=== PATIENT | male | born 1980 | race Hispanic/Latino ===

== ENCOUNTER 2020-04-12 23:11 | Emergency (ER) | payer SELFPAY ==
--- OUTSIDE RECORDS SUMMARY | 2020-04-12 23:13 | XMS REPORT | Summary of Care ---
:1980 Author Organization [facility] - [facility] Address [address] [place] [address] Care Team Providers Name Role Phone Cecy Gonsalves MD Primary Care Provider Encounter Details Date Type Department Care Team Description 02/28/2020 Patient Secure [facility] Cardiology- Wild Grijalva Angleton MD [facility], [address] [place] [address] [place], [place] [phone] Allergies No Known Allergiesdocumented as of this encounter (statuses as of 03/02/2020) Medications Medication Sig Dispensed Refills Start Date End Date Status albuterol 90 Inhale 2 Puffs 8.5 g 0 10/08/2019 A ctive mcg/actuation every 4 (four) inhalerIndications: hours as needed for COVID-19 virus Wheezing or infection Shortness of Breath. losartan 50 mg tablet Take 1 tablet by 45 tablet 6 01/10/2020 Active mouth 2 (two) times daily. Please take one 50 mg tablet in the morning and one-half (25mg) tablet in the evening. amLODIPine 5 mg Take 1 tablet by 90 tablet 3 01/14/2020 Active tablet mouth daily. documented as of this encounter (statuses as of 03/02/2020) Active Problems Problem Noted Date Essential hypertension 09/08/2019 Palpitations 09/07/2019 Morbid obesity with body mass index of 40.0-49.9 09/06 documented as of this encounter (statuses as of 03/02/2020) Social History Tobacco Use Types Packs/Day Years Used Date Former Smoker 1 5 Smokeless Tobacco: Former User Alcohol Use Drinks/Week oz/Week Comments Yes 6- 8 bottles wh en he goes out only Sex Assigned at Date Recorded Not on file documented as of this encounter Last Filed Vital Signs Not on filedocumented in this encounter Miscellaneous Notes Telephone Encounter - Marisel Grijalva MD - 03/02/2020 9:14 AM CSTMychart message sent. ESS DESIGNER documented in this encounter Plan of Treatment Date Type Specialty Care Team Description 04/14/2020 Office Visit Cardiology Marisel Grijalva MD [address] [place] [phone] Health Maintenance Due Date Last Done Comments DTaP,Tdap,and Td Vaccines (1 - 1998 Tdap) INFLUENZA VACCINE (#1) 2019 Depression Screening 12/11/2020 12/12/2019 PNEUMOCOCCAL 0-64 YEARS COMBINED Aged Out No longer eligible based on SERIES patient's age to complete this topic documented as of this encounter Results Not on filedocumented in this encounter
--- OUTSIDE RECORDS SUMMARY | 2020-04-12 23:13 | XMS REPORT | Summary of Care ---
:1980 Author Organization [facility] Address [address] [place] [address] Care Team Providers Name Role Phone Cecy Gonsalves MD Primary Care Provider Encounter Details Date Type Department Care Team Description 03/25/2020 Patient Secure [facility] Doctor Unassigned, [address] [place] [address] [place] [phone] [place] [address] [place] [address] Allergies No Known Allergiesdocumented as of this encounter (statuses as of 03/26/2020) Medications Medication Sig Dispensed Refills Start Date End Date Status albuterol 90 Inhale 2 Puffs 8.5 g 0 10/08/2019 A ctive mcg/actuation every 4 (four) inhalerIndication hours as needed s: COVID-19 virus for Wheezing or infection Shortness of Breath. amLODIPine 5 mg Take 1 tablet by 90 tablet 3 01/14/2020 Active tablet mouth daily. losartan 50 mg Take 1 tablet by 30 tablet 5 03/26/2020 Active tablet mouth every morning. losartan 25 mg Take 1 tablet by 30 tablet 5 03/26/2020 Active tablet mouth every evening. losartan 50 mg Take 1 tablet by 45 tablet 6 01/10/2020 020 Discontinued tablet mouth 2 (two) times daily. Please take one 50 mg tablet in the morning and one-half (25mg) tablet in the evening. documented as of this encounter (statuses as of 03/26/2020) Active Problems Problem Noted Date Essential hypertension 09/08/2019 Palpitations 09/07/2019 Morbid obesity with body mass index of 40.0-49.9 09/06 documented as of this encounter (statuses as of 03/26/2020) Social History Tobacco Use Types Packs/Day Years Used Date Former Smoker 1 5 Smokeless Tobacco: Former User Alcohol Use Drinks/Week oz/Week Comments Yes 6- 8 bottles wh en he goes out only Sex Assigned at Date Recorded Not on file documented as of this encounter Last Filed Vital Signs Not on filedocumented in this encounter Plan of Treatment Date Type Specialty Care Team Description 04/14/2020 Office Visit Cardiology Marisel Grijalva MD [address] [place] [phone] Health Maintenance Due Date Last Done Comments DTaP,Tdap,and Td Vaccines (1 - 1998 Tdap) INFLUENZA VACCINE (#1) 2019 Depression Screening 12/11/2020 12/12/2019 PNEUMOCOCCAL 0-64 YEARS COMBINED Aged Out No longer eligible based on SERIES patient's age to complete this topic documented as of this encounter Results Not on filedocumented in this encounter
--- OUTSIDE RECORDS SUMMARY | 2020-04-12 23:13 | XMS REPORT | Summary of Care ---
:1980 Author Organization [facility] - [facility] Address [address] [place] [address] Care Team Providers Name Role Phone Cecy Gonsalves MD Primary Care Provider Encounter Details Date Type Department Care Team Description 03/26/2020 Patient Secure [facility] Cardiology- Wild Grijalva Angleton [facility], [address] [place] [address] [place], [place] [phone] Allergies No Known Allergiesdocumented as of this encounter (statuses as of 03/26/2020) Medications Medication Sig Dispensed Refills Start Date End Date Status albuterol 90 Inhale 2 Puffs 8.5 g 0 10/08/2019 A ctive mcg/actuation every 4 (four) inhalerIndications: hours as needed for COVID-19 virus Wheezing or infection Shortness of Breath. amLODIPine 5 mg Take 1 tablet by 90 tablet 3 01/14/2020 Active tablet mouth daily. losartan 50 mg tablet Take 1 tablet by 30 tablet 5 03/26/2020 Active mouth every morning. losartan 25 mg tablet Take 1 tablet by 30 tablet 5 03/26/2020 Active mouth every evening. documented as of this encounter (statuses [...] Cardiology Marisel Grijalva MD [address] [place] [place] [address] [phone] Health Maintenance Due Date Last Done Comments DTaP,Tdap,and Td Vaccines (1 - 1998 Tdap) INFLUENZA VACCINE (#1) 2019 Depression Screening 12/11/2020 12/12/2019 PNEUMOCOCCAL 0-64 YEARS COMBINED Aged Out No longer eligible based on SERIES patient's age to complete this topic documented as of this encounter Results Not on filedocumented in this encounter
--- OUTSIDE RECORDS SUMMARY | 2020-04-12 23:13 | XMS REPORT | Continuity of Care Document ---
:1980 Author Organization [facility] Address [address] [place] [address] Care Team Providers Name Role Phone Rudi JOHNS, K.H. Attending Clinician Doctor Unassigned, Name Attending Clinician Unavailable Problems This patient has no known problems. Allergies, Adverse Reactions, Alerts This patient has no known allergies or adverse reactions. Medications This patient has no known medications. Procedures This patient has no known procedures. Encounters Start End Encounter Admission Attending Care Care Encounter Source Date/Time Date/Time Type Type Clinicians Facility Department ID 2020-03-26 2020-03-26 Patient [facility] [id number] 00:00:00 00:00:00 Secure Msg Marisel Urena [id number] [place] [id number] [facility] [phone] [address] 2020-03-25 2020-03-25 Patient Doctor SHENA [id number] 00:00:00 00:00:00 Secure Msg UnassignedLOPEZ [id number] [place] [facility] [id number] [id number] 2020-02-28 2020-02-28 Patient Rudi [facility] [id number] 00:00:00 00:00:00 Secure Msg Marisel Urena [id number] [place] [id number] [facility] [phone] nal 059 [facility] 2020-01-13 2020-01-13 Telephone [facility] [id number] 00:00:00 00:00:00 Marisel Urena [id number] [place] [id number] [facility] [phone] [facility] 2020-01-10 2020-01-10 Patient [facility] [id number] 00:00:00 00:00:00 Secure Msg Marisel Urena [id number] [place] [id number] [facility] [phone] [address] 2020-01-10 2020-01-10 Telephone [facility] [id number] 00:00:00 00:00:00 Marisel Urena [id number] [place] [id number] [facility] [phone] [facility] 2019-12-12 2019-12-12 Office [facility] [id number] 13:05:03 13:58:38 Visit Marisel Urena [id number] [place] [id number] [facility] [phone] [address] Results This patient has no known results.
--- OUTSIDE RECORDS SUMMARY | 2020-04-12 23:13 | XMS REPORT | Summary of Care ---
:1980 Author Organization [facility] - [facility] Address [address] [place] [address] Care Team Providers Name Role Phone Cecy Gonsalves MD Primary Care Provider Reason for Visit Reason Comments Rx Concern/Question Encounter Details Date Type Department Care Team Description 01/13/2020 Telephone [facility] Cardiology- Marisel Grijalva, Rx Concern/Question Romel JOHNS [address] [place] [address], [address] [place] [address] [place], [place] [phone] Allergies No Known Allergiesdocumented as of this encounter (statuses as of 01/14/2020) Medications Medication Sig Dispensed Refills Start Date [...] as of this encounter (statuses as of 01/14/2020) Active Problems Problem Noted Date Essential hypertension 09/08/2019 Palpitations 09/07/2019 Morbid obesity with body mass index of 40.0-49.9 09/06 documented as of this encounter (statuses as of 01/14/2020) Social History Tobacco Use Types Packs/Day Years Used Date Former Smoker 1 5 Smokeless Tobacco: Former User Alcohol Use Drinks/Week oz/Week Comments Yes 6- 8 bottles wh en he goes out only Sex Assigned at Date Recorded Not on file documented as of this encounter Last Filed Vital Signs Not on filedocumented in this encounter Miscellaneous Notes Telephone Encounter - Tanya Uribe RN - 01/14/2020 4:06 PM CDTInformed patient that he needs to take both the losartan and amlodipine per md's notes. Patient states he needs a refill on the amlodipine. Sent to his pharmacy. Telephone Encounter - Irish Lackey - 01/13/2020 4:28 PM CDTPatient is stating he just received a new prescription for Losartan. He was currently also taking amlodipine so he would like to know if he should continue taking amlodipine. Please advise. documented in this encounter Plan of Treatment Date Type Specialty Care Team Description 04/14/2020 Office Visit Cardiology Marisel Grijalva MD [address] [place] [place], [place] [phone] Health Maintenance Due Date Last Done Comments DTaP,Tdap,and Td Vaccines (1 - 1998 Tdap) INFLUENZA VACCINE (#1) 2019 Depression Screening 12/11/2020 12/12/2019 PNEUMOCOCCAL 0-64 YEARS COMBINED Aged Out No longer eligible based on SERIES patient's age to complete this topic documented as of this encounter Results Not on filedocumented in this encounter Insurance Payer Benefit Plan / Subscriber ID Effective Phone Address T ype Group Dates MEDICAID MEDICAID PENDING 2019-[address] Pending [place] [address] documented as of this encounter
[2020-04-13] MEDS ORDERED: TETANUS & DIPHTHERIA TOX,ADULT 0.5 ML VIAL ONE (00:07)
--- NOTE | 2020-04-13 00:42 | ER ---
Nurse's Notes [facility] Name: Hector Nair Age: 40 yrs Sex: Male : 1980 Arrival Date: 04/12/2020 Time: 23:14 Bed 20 Private MD: Diagnosis: Left Thumb Laceration Presentation: 04/12 23:25 Chief complaint: Patient states: laceration sustained on left thumb while painting. Pt wh states hasn't had Tetanus shot in a while. Coronavirus screen: Client denies travel out of the [place] in the last 14 days. At this time, the client does not indicate any symptoms associated with coronavirus-19. Ebola Screen: Patient negative for fever greater than or equal to 101.5 degrees Fahrenheit, and additional compatible Ebola Virus Disease symptoms Patient denies exposure to infectious person. Complicating Factors: There are no complicating factors for this patient. Initial Sepsis Screen: Does the patient meet any 2 criteria? No. Patient's initial sepsis screen is negative. Does the patient have a suspected source of infection? No. Patient's initial sepsis screen is negative. Risk Assessment: Do you want to hurt yourself or someone else? Patient reports no desire to harm self or others. Onset of symptoms was April 12, 2020. 23:25 Method Of Arrival: Ambulatory 23:25 Acuity: YESSY 4 Historical: - Allergies: 23:29 No Known Allergies; - Home Meds: 23:29 losartan 50 mg oral tab 1 tab once daily [Active]; losartan 25 mg oral tab 1 tab nightly [Active]; amlodipine 5 mg tab 1 tab once daily [Active]; - PMHx: 23:29 Hypertension; - PSHx: 23:29 None; wh - Immunization history:: Adult Immunizations not up to date. - Social history:: Smoking status: Patient/guardian denies using. Screenin:26 Abuse screen: Denies threats or abuse. Denies injuries from another. Nutritional screening: No deficits noted. Tuberculosis screening: No symptoms or risk factors identified. Fall Risk None identified. Assessment: 23:26 General: Appears in no apparent distress. Behavior is calm, cooperative, appropriate for age. Pain: Denies pain. Neuro: Level of Consciousness is awake, alert, obeys commands, Oriented to person, place, time, situation, Appropriate for age. Cardiovascular: Capillary refill < 3 seconds. Respiratory: Airway is patent Respiratory effort is even, unlabored, Respiratory pattern is regular, symmetrical. GI: Abdomen is non-distended. : No signs and/or symptoms were reported regarding the genitourinary system. EENT: No signs and/or symptoms were reported regarding the EENT system. Derm: Skin is intact, is healthy with good turgor, Skin is pink, warm \T\ dry. normal. Musculoskeletal: Circulation, motion, and sensation intact. Injury Description: Laceration sustained to left thumb is clean, 0.5 to 2.5 cm long, not bleeding. 04/13 00:30 Reassessment: Patient appears in no apparent distress at this time. No changes from previously documented assessment. Patient and/or family updated on plan of care and expected duration. Pain level reassessed. Patient is alert, oriented x 3, equal unlabored respirations, skin warm/dry/pink. Vital Signs: 04/12 23:20 BP 126 / 88 LA Sitting (auto/lg); Pulse 78; Resp 18; Temp 98.5(O); Pulse Ox 100% on 3 R/A; Weight 149.69 kg (R); Height 6 ft. (182.88 cm) (R); Pain 5/10; 04/13 00:30 BP 118 / 78; Pulse 74; Resp 18; Pulse Ox 99% on R/A; wh 04/12 23:20 Body Mass Index 44.76 (149.69 kg, 182.88 cm) [facility] ED Course: 04/12 23:14 Patient arrived in ED. ag3 23:15 Yusra Sharma, RN is Primary Nurse. wh 23:20 Duarte Masterson MD is Attending Physician. 7 23:21 Verbal reassurance given. Pulse ox on. NIBP on. jp3 23:21 Patient maintains SpO2 saturation greater than 95% on room air. jp3 23:26 Triage completed. wh 23:27 Arm band placed on right wrist. 23:29 Patient has correct armband on for positive identification. Bed in low position. Call light in reach. Side rails up X 1. 04/13 00:49 No provider procedures requiring assistance completed. Patient did not have IV access during this emergency room visit. Administered Medications: 04/12 23:54 Drug: Tetanus-Diphtheria Toxoid Adult 0.5 ml {Tool Dispatcher: [employer]. Exp: 07/11/2021. Lot #: [id number]. } Route: IM; Site: right deltoid; 04/13 00:49 Follow up: Response: No adverse reaction Outcome: 00:41 Discharge ordered by . mh7 00:49 Discharged to home ambulatory. 00:49 Condition: stable 00:49 Discharge instructions given to patient, Instructed on discharge instructions, follow up and referral plans. medication usage, wound care, Demonstrated understanding of instructions, follow-up care, medications, wound care, Prescriptions given X 1. 00:49 Patient left the ED. Signatures: Yusra Sharma RN RN Amilcar Ivory jp3 Bozena Lackey3 Duarte Masterson MD MD 7
--- NOTE | 2020-04-13 00:43 | EDPHYS ---
Physician Documentation [facility] Name: Hector Nair Age: 40 yrs Sex: Male : 1980 Arrival Date: 04/12/2020 Time: 23:14 Bed 20 Private MD: ED Physician Duarte Masterson HPI: 04/12 23:47 This 40 yrs old Male presents to ER via Ambulatory with complaints of mh7 Laceration To Hand. 23:47 The patient has a laceration related to: a puncture wound Boxcutter, occurred at home, mh7 and The type of wound is a puncture. mushroom cutter The injury was Opening a package during painting. The laceration(s) is(are) located on the Left thumb. Onset: The symptoms/episode began/occurred just prior to arrival, today. Associated signs and symptoms: Pertinent negatives: deformity, dizziness, heavy bleeding, loss of consciousness, numbness distal to injury, suspected foreign body. Historical: - Allergies: 23:29 No Known Allergies; wh - Home Meds: 23:29 losartan 50 mg oral tab 1 tab once daily [Active]; losartan 25 mg oral tab 1 tab wh nightly [Active]; amlodipine 5 mg tab 1 tab once daily [Active]; - PMHx: 23:29 Hypertension; wh - PSHx: 23:29 None; wh - Immunization history:: Adult Immunizations not up to date. - Social history:: Smoking status: Patient/guardian denies using. ROS: 23:47 Constitutional: Negative for fever, chills, and weight loss, Eyes: Negative for injury, mh7 pain, redness, and discharge, ENT: Negative for injury, pain, and discharge, Neck: Negative for injury, pain, and swelling, Cardiovascular: Negative for chest pain, palpitations, and edema, Respiratory: Negative for shortness of breath, cough, wheezing, and pleuritic chest pain, Abdomen/GI: Negative for abdominal pain, nausea, vomiting, diarrhea, and constipation, Back: Negative for injury and pain, : Negative for injury, bleeding, discharge, and swelling, Neuro: Negative for headache, weakness, numbness, tingling, and seizure, Psych: Negative for depression, anxiety, suicide ideation, homicidal ideation, and hallucinations, Allergy/Immunology: Negative for hives, rash, and allergies, Endocrine: Negative for neck swelling, polydipsia, polyuria, polyphagia, and marked weight changes, Hematologic/Lymphatic: Negative for swollen nodes, abnormal bleeding, and unusual bruising. Exam: 23:47 Constitutional: This is a well developed, well nourished patient who is awake, alert, mh7 and in no acute distress. Head/Face: Normocephalic, atraumatic. 04/13 00:35 Neuro: Awake and alert, GCS 15, oriented to person, place, time, and situation. mh7 Cranial nerves II-XII grossly intact. Motor strength 5/5 in all extremities. Sensory grossly intact. Cerebellar exam normal. Normal gait. Psych: Awake, alert, with orientation to person, place and time. Behavior, mood, and affect are within normal limits. Musculoskeletal/extremity: Extremities: noted in the left distal medial thumb: laceration, ROM: intact in all extremities, Circulation is intact in all extremities. Pulses: are normal with no appreciated deficits, Perfusion: the patient is normally perfused throughout, Perfusion: the extremity is normally perfused throughout, Sensation intact. Compartment Syndrome exam of affected extremity: is normal. no pain, no numbness, no tingling, no sensation deficit, no palor, no weak pulses, Joints: All joints appear normal with full range of motion. Tendon exam: specific tendon testing normal through active and passive range of motion Skin: injury, laceration(s), the wound is approximately 1 cm(s), with a depth of 0.1 cm(s), of the Left distal medial thumb. Vital Signs: 04/12 23:20 BP 126 / 88 LA Sitting (auto/lg); Pulse 78; Resp 18; Temp 98.5(O); Pulse Ox 100% on jp3 R/A; Weight 149.69 kg (R); Height 6 ft. (182.88 cm) (R); Pain 5/10; 04/13 00:30 BP 118 / 78; Pulse 74; Resp 18; Pulse Ox 99% on R/A; wh 04/12 23:20 Body Mass Index 44.76 (149.69 kg, 182.88 cm) jp3 Laceration: 00:35 Wound Repair of 1cm ( 0.4in ) subcutaneous laceration to Left distal medial thumb. mh7 Linear shaped.. Distal neuro/vascular/tendon intact. Wound prep: Extensive cleansing by nurse, Wound explored extensively, Copious irrigation. Skin closed with 1-0 Steri Strips using simple sutures and sterile technique. Dressed with non-adherent dressing. Patient tolerated well. MDM: 00:35 Differential diagnosis: superficial laceration, tendon injury, vascular injury. Data [facility] reviewed: vital signs, nurses notes. Data interpreted: Pulse oximetry: on room air is 100 %. Interpretation: normal. Counseling: I had a detailed discussion with the patient and/or guardian regarding: the historical points, exam findings, and any diagnostic results supporting the discharge/admit diagnosis, the need for outpatient follow up, to return to the emergency department if symptoms worsen or persist or if there are any questions or concerns that arise at home. Response to treatment: the patient's symptoms have markedly improved after treatment. 00:41 Patient medically screened. [facility] Administered Medications: 04/12 23:54 Drug: Tetanus-Diphtheria Toxoid Adult 0.5 ml {Acute Care Physical Therapist: [employer]. Exp: 07/11/2021. Lot #: [id number]. } Route: IM; Site: right deltoid; 04/13 00:49 Follow up: Response: No adverse reaction Disposition: 04/13/20 00:41 Discharged to Home. Impression: Left Thumb Laceration. - Condition is Stable. - Discharge Instructions: Laceration Care, Adult, [id number]. - Prescriptions for Keflex 500 mg Oral Capsule - take 1 capsule by ORAL route every 6 hours for 7 days; 28 capsule. - Medication Reconciliation Form, Thank You Letter, Antibiotic Education, Prescription Opioid Use form. - Follow up: Private Physician; When: 48 Hours; Reason: Wound Recheck, Worsening of condition, Recheck today's complaints, Continuance of care, Re-evaluation by your physician. Follow up: Emergency Department; When: 48 Hours; Reason: Wound Recheck, Worsening of condition. - Problem is new. - Symptoms have improved. Signatures: Yusra Sharma RN RN Duarte Masterson MD MD [facility] Corrections: (The following items were deleted from the chart) 00:49 00:41 04/13/2020 00:41 Discharged to Home. Impression: Left Thumb Laceration. Condition wh is Stable. Forms are Medication Reconciliation Form, Thank You Letter, Antibiotic Education, Prescription Opioid Use. Follow up: Private Physician; When: 48 Hours; Reason: Wound Recheck, Worsening of condition, Recheck today's complaints, Continuance of care, Re-evaluation by your physician. Follow up: Emergency Department; When: 48 Hours; Reason: Wound Recheck, Worsening of condition. Problem is new. Symptoms have improved. mh7
[2020-04-13 00:54] VITALS: TEMP 98.5
[2020-04-13 00:55] VITALS: BP 118/78; O2SAT 99
== END 2020-04-13 00:49 | disposition home or self-care (01) ==
LOC: ER 23:11
DX: S61.012A Laceration without foreign body of left thumb without damage to nail, initial encounter (principal); Z23 Encounter for immunization; W26.0XXA Contact with knife, initial encounter; I10 Essential (primary) hypertension
CPT/HCPCS: 90471; 99284